=== PATIENT | female | born 1990 | race African-American/Black ===

== ENCOUNTER 2024-06-08 13:22 | Inpatient (IN) | payer MEDICAID ==
[~2024-06-08] VITALS: Ht 162.6 cm; Wt 81.6 kg
[2024-06-08] MEDS ORDERED: LACTATED RINGER'S 1,000 ML IV SCH (13:45)
[2024-06-08] MEDS ORDERED: LACT. RINGERS/OXYTOCIN 20UNITS 500 ML IV ONE ×2 (13:45→14:15)
[2024-06-08] MEDS ORDERED: OXYTOCIN 10UNIT/ML 1ML VIAL IM ONE (13:45)
[2024-06-08] MEDS ORDERED: BUTORPHANOL TARTRATE 2 MG/1 ML VIAL IV PRN ×2 (13:45)
[2024-06-08] MEDS ORDERED: LIDOCAINE 2%HCL (LOCAL ANESTH.) INJ 20ML MDV IJ PRN (13:45)
--- NOTE | 2024-06-08 13:54 | LDN2 ---
Labor and Delivery Note Date 06/08/24 Age 33 1 EGA 38.3 Diagnosis Term , spont labor Vaginal Delivery: VTX Vacuum Assisted: No Placenta: Spontaneous Sex: Female Weight Pending Apgars 8/9 Amniotic Fluid: Clear Anesthesia None Episiotomy: No Extension: No Repaired with B/L 1st deg labia minor superficial tears, no sutures needed EBL 50 mL Complications None Conditions Stable Comments/Significant Med Yaritza upon arrival. NO IV access IM Pitocin given after delivery. Fundus firm Visit Coding OBGYN Date of Service: Jun 08, 2024 Billing Provider: DAVID MAS DO [employer] Common Visit Codes: 65055-TOLBYST INP/OBS CARE (MOD) [employer] Procedure Codes: 69186-UZS DEL INCLUDING DAVID MAS DO Jun 08, 2024 13:54
--- NOTE | 2024-06-08 14:00 | DVHHP2 ---
OB CC & HPI Date Date of Admission: Jun 08, 2024 Patient Identification: : 1 Para: 0 EGA: 38.3 Chief Complaints: Reason for admission: active labor History of Present Complaints [id number] presented in active labor, 10cm dilated on arrival Patient in severe pain, ready to push upon admission. PNL care in [place], no records available Denies any significant PMHx or complications Past Medical History Cardiac: No pertinent Hx Pulmonary: No pertinent Hx Central Nervous System: No pertinent Hx GI: No pertinent Hx Hemotology/Oncology: No pertinent Hx Hepatobiliary: No pertinent Hx Psychiatric: No pertinent Hx Musculoskeletal: No pertinent Hx Rheumotologic: No pertinent Hx Infectious Disease: No peritnent Hx ENT: No pertinent Hx Renal/: No pertinent Hx Endocrine: No pertinent Hx Dermatology: No pertinent Hx Past Surgical History: No pertinent Hx OB History OB History Care: Good Care Ultrasounds: Other (Unknown) Obstetrical Complications: None Medical Complications: None Allergies: Coded Allergies: NO KNOWN ALLERGIES (Unverified , 06/08/24) Current Medications Current Medications Medications (Trade) Dose Ordered Sig/Agustin Route PRN Reason Start Time Stop Time Status Last Admin Lactated Ringer's 1,000 ml @ 125 mls/hr Q8H IV 06/08/24 13:45 Witch Raegan (Tucks) 1 pad PRN PRN TOP PERINEAL AREA DISCOMFORT 06/08/24 13:45 Sodium Lauryl Sulfate (Phisoderm) 240 ml PRN PRN TOP PERINEAL AREA DISCOMFORT 06/08/24 13:45 Benzocaine (Dermoplast) 1 applic PRN PRN TOP PERINEAL AREA DISCOMFORT 06/08/24 13:45 Butorphanol Tartrate (Stadol Injection) 1 mg Q4HPRN PRN IV MODERATE PAIN (4-6 PAIN SCALE) 06/08/24 13:45 Butorphanol Tartrate (Stadol Injection) 2 mg Q4HPRN PRN IV SEVERE PAIN (7-10 PAIN SCALE) 06/08/24 13:45 UNV Lidocaine HCl (Xylocaine) 20 ml ONCE PRN IJ PERINEAL AREA DISCOMFORT 06/08/24 13:45 UNV Family & Social History Family/Social History Blood Type: Unknown Rubella: unknown RPR/VDRL: Unknown GBS Status: Unknown HBsAG: Unknown Review of Systems Constitutional: No symptom reported Ears, Nose, & Throat: No symptom reported Eyes: No symptom reported Pulmonary/Respiratory: No symptom reported Cardiovascular: No symptom reported Gastrointestinal: No symptom reported Genitourinary: No symptom reported Musculoskeletal: No symptom reported Skin: No symptom reported Psychiatric: No symptom reported Endocrine: No symptom reported Hemotologic/Lymphatic: No symptom reported OB Admission Exam Physical Exam HEENT: NCAT Heart: Rhythm Normal Lungs: Clear Abdomen: Gravid Extremities: Normal Reflexes: Normal Cervical Dilatation: 10cm Effacement: 100% Station: +2 Membranes: Ruptured Amniotic Fluid: Clear Heart Rate: 140's Accelerations: Accelerations Present Decelerations: No Decelerations Short Term Variability: Present [employer]er Variability: Average (6-25) Contractions on Admission: < 5 Minutes Apart Intensity: Firm OB Plan Plan Admitting Diagnosis: Early Term IUP 38+ weeks, Active Labor 10cm upon arrival GBS unknown Plan: Expectant Management Other Plan: Admit for imminent vaginal delivery PNL records requested from [facility] in [place], [place] Informed consent obtained. Visit Coding OBGYN Date of Service: Jun 08, 2024 Billing Provider: DAVID MAS DO [employer] Common Visit Codes: [id number] OBS CARE (HIGH) DAVID MAS DO Jun 08, 2024 14:00
[2024-06-08] MEDS ORDERED: ONDANSETRON ODT 4 MG TAB PO PRN (14:30)
[2024-06-08 14:36] LABS: Alanine Aminotransferase 14 U/L (7-40); Albumin 4.4 g/dL (3.2-4.8); Anion Gap 13 (5-15); Aspartate Aminotransferase 17 U/L (13-40); BUN/Creatinine Ratio 9.9 (10.0-20.0); Calcium 9.2 mg/dL (8.7-10.4); Chloride 104 mmol/L (98-107); Potassium 3.5 mmol/L (3.5-5.1)
[2024-06-08 14:37] LABS: Bilirubin, Total 0.3 mg/dL (0.2-1.0)
[2024-06-08 14:39] LABS: Alkaline Phosphatase 211 U/L (46-116); Blood Urea Nitrogen 8 mg/dL (9-23); Carbon Dioxide 18 mmol/L (20-31); Glucose 110 mg/dL (74-106); Sodium 135 mmol/L (136-145)
[2024-06-08 14:44] LABS: INR 0.92 (0.9-1.15); Partial Thromboplastin Time 28.1 SEC (24.5-34.5); Prothrombin Time 9.8 sec (9.3-11.8)
[2024-06-08] MEDS: DERMOPLAST 60ML BOTTLE TOP PRN (14:55)
[2024-06-08] MEDS: WITCH HAZEL-GLYCERIN PAD TOP PRN (14:55)
[2024-06-08] MEDS: PHISODERM TOP SOLN 240ML BTL TOP PRN (14:55)
[2024-06-08] MEDS: IBUPROFEN 600 MG TAB PO PRN (14:55)
[2024-06-08 16:16] LABS: Basophils # (auto) 0 10 ^3/uL (0-0.2); Basophils % (auto) 0.1 % (0.0-2.0); Eosinophils # (auto) 0 10 ^3/uL (0-0.8); Eosinophils % (auto) 0.1 % (0.0-7.0); Hematocrit 34.4 % (36.0-46.0); Lymphocytes % (auto) 13.1 % (10.0-50.0); Mean Corpuscular Hemoglobin 32.7 pg (28.0-32.0); Mean Corpuscular Volume 93.3 fL (80.0-100.0); Monocytes # (auto) 0.5 10 ^3/uL (0-1.3); Monocytes % (auto) 3.2 % (0.0-12.0); Neutrophils # (auto) 12.9 10 ^3/uL (1.6-8.6); Neutrophils % (auto) 83.5 % (37.0-80.0); Nucleated Red Blood Cells % 0.2 %; Platelet Count (auto) 232 10^3/uL (140-450); Red Blood Cells 3.68 10^6/uL (4.0-5.20); White Blood Cell 15.4 10^3/uL (4.4-10.8)
[2024-06-08] MEDS: ACETAMINOPHEN 325 MG TAB PO PRN (18:17)
[2024-06-08 19:00] VITALS: BP 120/67; PULSE 80; RESP 16; TEMP 98.1; O2SAT 99
[2024-06-08] MEDS: DOCUSATE SOD 100 MG CAP PO SCH (22:00)
[2024-06-08 23:00] VITALS: BP 118/68; PULSE 83; RESP 18; TEMP 99; O2SAT 99
[2024-06-08 23:57] LABS: Urine Bacteria None Seen /hpf (None Seen)
[2024-06-09 00:21] LABS: Amphetamine Screen, Urine Neg (NEGATIVE); Barbiturate Scree,Urine Neg (NEGATIVE); Benzodiazephine Screen, Urine Neg (NEGATIVE); Cannabinoid Screen, Urine Neg (NEGATIVE); Cocaine Screen, Urine Neg (NEGATIVE); Opiate Scree,Urine Neg (NEGATIVE); Phencyclidine Screen, Urine Neg (NEGATIVE)
[2024-06-09 00:25] LABS: Urine Blood 3+ /uL (Negative); Urine Clarity Turbid (Clear); Urine Color Light-Brown (Yellow); Urine Mucus FEW (None Seen); Urine Protein, UAD 1+ (Negative); Urine Squamous Epithelial Cell FEW /hpf (<5); Urine Urobilinogen Normal (Negative); Urine WBC 86 /HPF (0-5)
[2024-06-09 03:00] VITALS: RESP 16
[2024-06-09 08:06] LABS: RPR Non Reactive (Non Reactive)
[2024-06-09] MEDS ORDERED: IBU600T PO (09:35)
--- NOTE | 2024-06-09 09:38 | DVHDS2 ---
Physician Discharge Progress N Final Diagnosis: Term , delivered s/ uncomplicated Secondary Diagnosis: N/A Operations or Procedures: Operations or Procedures Commentary: Commentary Normal labor/delivery. Uncomplicated Normal PP course, stable Condition on Discharge: Stable Disposition: Home Discharge Instructions: Diet: Regular Activity: Light activity Activity comment: Pelvic rest x 6 wk Follow Up/Referral: [address] Mas or primary EDGERMAN MD Medications: Ibuprofen PRN pain eRx sent Follow Up Care: Discharge Statement: "Patient was advised to return to the ER or call 911 if any headaches, dizziness, shortness of breath, chest pain, abdominal pain, bleeding, fevers, or worsening of medical condition. Patient was counseled about treatment plan, medications, possible side effects, patientverbalized understanding. All questions were answered to the best of my ability. This discharge took greater then 30 minutes in planning, reviewing documentation, counseling the patient, and discussing with other team members." Visit Coding OBGYN Date of Service: Jun 09, 2024 Billing Provider: DAVID MAS DO EDGERMAN Common Visit Codes: 66325-MGN/OBS DISCH DAY <30MIN DAVID MAS DO Jun 09, 2024 09:38
== END 2024-06-09 15:36 | disposition home or self-care (01) | DRG 560 ==
LOC: OBSVTOIN 13:22 → LDRP 13:22
PROVIDERS: ADMIT Obstetrics & Gynecology; ATTEND Obstetrics & Gynecology
PROC: 10E0XZZ Delivery of Products of Conception, External Approach (ICD-10-PCS; principal; 2024-06-08)
DX: O70.0 First degree perineal laceration during delivery (principal); Z37.0 Single live birth; Z3A.38 38 weeks gestation of pregnancy
CPT/HCPCS: 36415; 59025; 59409; 80053; 80307; 81001; 85025; 85610; 85730; 86592; 86803; 86850; 86900; 86901; 94760; 94762; 96372; G0378